=== PATIENT | female | born 1990 | race Caucasian/White ===

== ENCOUNTER 2017-08-28 18:24 | Emergency (ER) | payer MEDICAID, OTHER ==
[2017-08-28] MEDS ORDERED: Eye-Stream Solution OP ONE (18:35)
[2017-08-28] MEDS ORDERED: Adacel Vial IM ONE ×2 (18:35→18:37)
[2017-08-28] MEDS ORDERED: Fluor-I-Strip/Ful-Flo OP ONE ×2 (18:35→18:36)
[2017-08-28] MEDS ORDERED: TETRACAINE 0.5% STERI-UNIT SOL OP STA (18:35)
[2017-08-28 18:36] VITALS: BP 141/71; PULSE 97; O2SAT 97
[2017-08-28] MEDS ORDERED: TETRACAINE 0.5% STERI-UNIT SOL OP ONE (18:36)
[2017-08-28] MEDS ORDERED: Eye-Stream Solution ONE (18:36)
[2017-08-28] MEDS ORDERED: Ciloxan OPHTH OP ONE (18:43)
[2017-08-28] MEDS ORDERED: Acular OPTH SOL OP ONE ×2 (18:43→18:51)
--- NOTE | 2017-08-28 18:50 | ERPHSYRPT ---
- History of Present Illness Time Seen by Provider: 08/28/17 18:30 Source: patient Patient Subjective Stated Complaint: pt reports child scratched her left eye Triage Nursing Assessment: pt pink warm and [id number] noted to left eye- clear tearing noted-pt reports blurred vision with tearing-pain increases with light or tearing Physician History: CC: scratched eye Hx: 27 y/o patient states her child scratched her left eye. She has pain and redness in left eye. No other injuries. Injury this afternoon. Tetanus out of date. Timing/Duration: today Location: left eye Severity: moderate Apparent Injury: yes Visual Assistive Devices: None Allergies/Adverse Reactions: No Known Drug Allergies Allergy (Unverified 08/28/17 18:34) Home Medications: No Reportable Medications [No Reported Medications] 08/28/17 [History] Hx Tetanus, Diphtheria Vaccination/Date Given: No Hx Influenza Vaccination/Date Given: No Hx Pneumococcal Vaccination/Date Given: No Immunizations Up to Date: Yes - Review of Systems Constitutional: No Symptoms Eyes: Tearing, Vision Changes Ears, Nose, & Throat: No Symptoms - Past Medical History Pertinent Past Medical History: No - Past Surgical History Past Surgical History: No - Social History Smoking Status: Never smoker Exposure to second hand smoke: No Drug Use: none Patient Lives Alone: No - Female History Hx Last Menstrual Period: last wk Hx Now: No - Nursing Vital Signs Nursing Vital Signs: Initial Vital Signs Temperature 98.4 F 08/28/17 18:31 Pulse Rate 97 H 08/28/17 18:31 Respiratory Rate 18 08/28/17 18:31 Blood Pressure 141/71 08/28/17 18:31 O2 Sat by Pulse Oximetry 97 08/28/17 18:31 Pain Scale Pain Intensity 4 - Physical Exam General Appearance: alert Vision Acuity Right Eye: 20/30 Vision Acuity Left Eye: 20/50 Eye Exam: bilateral eye: PERRL, EOMI Ears, Nose, Throat Exam: moist mucous membranes Neck Exam: normal inspection, non-tender, supple Skin Exam: warm, dry, No rash SpO2 Interpretation: normal SpO2: 97 Oxygen Delivery: Room Air Comments: PERRL, EOMI Left eye has conjunctival injection, clear tears. Lid everted with no FB noted. Fluoroscein used and there is large uptake 6 to 7 o'clock position. Ordered Tests: Medication Summary Discontinued Medications Generic Name Dose Route Start Last Admin Trade Name Chao PRN Reason Stop Dose Admin Diphtheria/Tetanus/Acell Pertussis 0.5 ml 08/28/17 18:35 Adacel Vial IM 08/28/17 18:36 .ONCE ONE Diphtheria/Tetanus/Acell Pertussis Confirm 08/28/17 18:37 Adacel Vial Administered 08/28/17 18:38 Dose 0.5 ml IM .STK-MED ONE Eye Irrigation Solution 15 ml 08/28/17 18:35 Eye-Stream Solution OP 08/28/17 18:36 STAT ONE Eye Irrigation Solution Confirm 08/28/17 18:36 Eye-Stream Solution Administered 08/28/17 18:37 Dose 30 ml .ROUTE .STK-MED ONE Fluorescein Sodium 1 mg 08/28/17 18:35 Cnohs-U-Wwzcg/Ful-Jonathan OP 08/28/17 18:36 STAT ONE Fluorescein Sodium Confirm 08/28/17 18:36 Xxcbu-N-Dwoxg/Ful-Jonathan Administered 08/28/17 18:37 Dose 1 mg OP .STK-MED ONE Tetracaine HCl 4 ml 08/28/17 18:35 Tetracaine 0.5% Steri-Unit Rula OP 08/28/17 18:36 STAT STA Tetracaine HCl Confirm 08/28/17 18:36 Tetracaine 0.5% Steri-Unit Rula Administered 08/28/17 18:37 Dose 4 ml OP .STK-MED ONE - Progress Progress Note: 08/28/17 18:49 She has large corneal abrasion. Will use ketorolac for pain, ibuprofen po, and cipro. Advised eye check with eye doctor tomorrow or Thursday. Instr given. Counseled pt/family regarding: diagnosis, need for follow-up - Departure Time of Disposition: 18:50 Departure Disposition: Home Clinical Impression: Corneal abrasion, left Qualifiers: Encounter type: initial encounter Qualified Code(s): S05.02XA - Injury of conjunctiva and corneal abrasion without foreign body, left eye, initial encounter Condition: Stable Critical Care Time: No Referrals: HI SIERRA [Primary Care Provider] - Instructions: Corneal Abrasion (DC) Additional Instructions: Use ketorolac 1 drop every 6 hours. Use cipro 1 drop every 2 hours , then every 4 hours Thursday, then every 6 hours Thursday. See eye doctor tomorrow or Thursday. Ibuprofen as directed for discomfrort.
[2017-08-28] MEDS ORDERED: Ciloxan OPHTH ONE (18:51)
== END 2017-08-28 19:01 | disposition home or self-care (01) ==
LOC: ED 18:24
DX: S05.02XA Injury of conjunctiva and corneal abrasion without foreign body, left eye, initial encounter (principal); W50.4XXA Accidental scratch by another person, initial encounter
CPT/HCPCS: 90471; 90715; 99283; A9270-GY

== ENCOUNTER 2017-11-13 18:25 | Emergency (ER) | payer OTHER ==
[2017-11-13 18:35] VITALS: BP 112/67; O2SAT 98
--- NOTE | 2017-11-13 19:04 | ERPHSYRPT ---
- History of Present Illness Time Seen by Provider: 11/13/17 18:58 Source: patient Exam Limitations: no limitations Patient Subjective Stated Complaint: Pt states "I was walking near the pool and there was an electric cover motor and I thought I stubbed it but then I noticed all the blood." Triage Nursing Assessment: Pt alert and oriented X 3, skin pwd. PT ambulates with a limp, pt has approx 3 cm x 1 cm laceration to the bend of the little toe on her left foot. no bleeding at this time Physician History: Pt states, she accidentally stubbed her left little toe into a metal part at the pool at home just before coming. She denies other injury or complaints, did not fall, her tetanus is up to date. Method of Injury: direct blow Occurred: just prior to arrival Quality: constant Severity of Pain-Max: mild Severity of Pain-Current: mild Lower Extremities Pain: 5th toe: left Modifying Factors: Improves With: nothing Associated Symptoms: none Allergies/Adverse Reactions: No Known Drug Allergies Allergy (Verified 11/13/17 18:35) Home Medications: No Reportable Medications [No Reported Medications] 08/28/17 [History] Hx Tetanus, Diphtheria Vaccination/Date Given: Yes Hx Influenza Vaccination/Date Given: No Hx Pneumococcal Vaccination/Date Given: No Immunizations Up to Date: Yes - Review of Systems Constitutional: No Symptoms Skin: Other (laceration o9n the bottom of the left 5th toe.) - Past Medical History Pertinent Past Medical History: No Neurological History: No Pertinent History - Past Surgical History Past Surgical History: No - Social History Smoking Status: Never smoker Exposure to second hand smoke: No Drug Use: none Patient Lives Alone: No - Female History Hx Last Menstrual Period: 10/20/2017 Hx Now: No - Nursing Vital Signs Nursing Vital Signs: Initial Vital Signs Temperature 98.7 F 11/13/17 18:27 Pulse Rate 99 H 11/13/17 18:27 Respiratory Rate 16 11/13/17 18:27 Blood Pressure 112/67 11/13/17 18:27 O2 Sat by Pulse Oximetry 98 11/13/17 18:27 Pain Scale Pain Intensity 0 - Physical Exam General Appearance: no apparent distress Eyes, Ears, Nose, Throat Exam: normal ENT inspection Neck Exam: normal inspection Cardiovascular/Respiratory Exam: chest non-tender, normal breath sounds, heart sounds normal Gastrointestinal/Abdominal Exam: non-tender, soft Back Exam: normal inspection Foot Exam: left foot: other (1 cm laceration on the plantar aspect of the 5th toe at the MP fold, no bleeding or deformity, good distal circulation.) Neuro/Tendon Exam: normal motor functions Mental Status Exam: alert, oriented x 3 Skin Exam: normal color SpO2 Interpretation: normal SpO2: 98 Oxygen Delivery: Room Air Procedures - Laceration/Wound Repair Left Toe Wound Location: Left, foot Wound Length (cm): 1 Wound's Depth, Shape: superficial Wound Explored: clean Irrigated: Yes Hibiclens Prep: No Wound Repaired With: Steri-strips, Dermabond Sterile Dressing Applied?: Yes Splint Applied?: Yes Type of Splint Applied: postop shoe - Course Nursing assessment & vital signs reviewed: Yes - Radiology Exams Left Foot X-ray Interpretation: Interpreted by me, Negative Ordered Tests: Active Orders 24 hr Category Date Time Status Wound Care STAT Care 11/13/17 18:58 Active FOOT (2 VIEWS) Stat Exams 11/13/17 18:48 Taken - Progress Progress: unchanged Counseled pt/family regarding: diagnosis, need for follow-up, rad results - Departure Time of Disposition: 19:20 Departure Disposition: Home Clinical Impression: Laceration of toe of left foot Qualifiers: Encounter type: initial encounter Toe: lesser toe Damage to nail status: without damage Foreign body presence: without foreign body Qualified Code(s): S91.115A - Laceration without foreign body of left lesser toe(s) without damage to nail, initial encounter Condition: Stable Critical Care Time: No Referrals: HI SIERRA [Primary Care Provider] - Instructions: Laceration Repair With Glue (DC) Additional Instructions: Rest x 2-3 days with elevated leg, daily cleaning and sterile dressing changes, return if severe pain, redness, swelling, discharge or fever> 102 F!
[2017-11-13 19:25] VITALS: PULSE 70
--- NOTE | 2017-11-13 22:24 | XRAY ---
Indication: Fifth toe laceration. Comparison: None 2 nonweightbearing views of the left foot obtained. No bony, articular, or soft tissue abnormalities.
== END 2017-11-13 19:27 | disposition home or self-care (01) ==
LOC: ED 18:25
PROC: 0HQNXZZ Repair Left Foot Skin, External Approach (ICD-10-PCS; principal; 2017-11-13)
DX: S91.115A Laceration without foreign body of left lesser toe(s) without damage to nail, initial encounter (principal); W26.8XXA Contact with other sharp object(s), not elsewhere classified, initial encounter; Y93.01 Activity, walking, marching and hiking; Y92.008 Other place in unspecified non-institutional (private) residence as the place of occurrence of the external cause
CPT/HCPCS: 12001; 73620; 99283